=== PATIENT | male | born 1990 | race Caucasian/White ===

== ENCOUNTER 2017-08-03 22:45 | Emergency (ER) | payer BC ==
--- NOTE | 2017-08-03 22:54 | EDPHY ---
H & P Time Seen by Provider: 08/03/17 22:55 HPI/ROS: HPI CHIEF COMPLAINT: Numbness and tingling all over, concerned that he may have diabetes. HISTORY OF PRESENT ILLNESS: Patient very pleasant 27-year-old male, is otherwise healthy with no significant medical history does not take any daily medications he presents emergency room stating that he has had a very long day with very little sleep, at work today he noticed some tingling in his left index finger. He then states that tonight he had numbness and tingling throughout his entire body felt anxious and decided come the emergency room for this. He is concerned he may have diabetes. Past Medical History: No significant medical history Past Surgical History: No significant surgical history Social History: Lives locally denies drugs alcohol tobacco. Employed. Family History: Noncontributory ROS REVIEW OF SYSTEMS: A comprehensive 10 point review of systems is otherwise negative aside from elements mentioned in the history of present illness. Exam Constitutional appears well nontoxic slightly anxious triage nursing summary reviewed, vital signs reviewed, awake/alert. Eyes normal conjunctivae and sclera, EOMI, PERRLA. HENT normal inspection, atraumatic, moist mucus membranes, no epistaxis, neck supple/ no meningismus, no raccoon eyes. Respiratory clear to auscultation bilaterally, normal breath sounds, no respiratory distress, no wheezing. Cardiovascular rate normal, regular rhythm, no murmur, no edema, distal pulses normal. Gastrointestinal soft, non-tender, no rebound, no guarding, normal bowel sounds, no distension, no pulsatile mass. Genitourinary no CVA tenderness. Musculoskeletal no midline vertebral tenderness, full range of motion, no calf swelling, no tenderness of extremities, no meningismus, good pulses, neurovascularly intact. Skin pink, warm, & dry, no rash, skin atraumatic. Neurologic awake, alert and oriented x 3, AAOx3, moves all 4 extremities equally, motor intact, sensory intact, CN II-XII intact, normal cerebellar, normal vision, normal speech. Psychiatric normal mood/affect. Heme/Lymph/Immune no lymphadenopathy. Differential Diagnosis: Includes but is not limited to in a particular order acute anxiety, panic attack, electrolyte disturbance, diabetes, thyroid dysfunction Medical Decision Making: Plan for this patient check basic blood work and electrolytes, check TSH, check glucose. Re-evaluate. Re-evaluation: 2314: Since arriving to the emergency room he states he feels much better. Has not any longer anxious. 2346: Went over patient's blood work with him. Blood work is reassuring. No evidence of diabetes and electrolytes are appropriate. He is resting comfortably without any symptoms. I will allow her to go home most most likely has anxiety, however I did discuss VS versus paresthesias should follow up with his primary care doctor or neurologist. If he has acute change in symptoms to return emergency room if her stands. I do not feel like he needs any imaging at this time is he has no symptoms and is resting comfortably. Return precautions discussed. Source: Patient - Medical/Surgical History Hx Asthma: No Hx Chronic Respiratory Disease: No Hx Diabetes: No Hx Cardiac Disease: No Hx Renal Disease: No Hx Cirrhosis: No Hx Alcoholism: No Hx HIV/AIDS: No Hx Splenectomy or Spleen Trauma: No Other PMH: PMHx: denies. PSHx: denies - Social History Smoking Status: Never smoked Constitutional: Initial Vital Signs Temperature (C) 36.8 C 08/03/17 22:53 Heart Rate 75 08/03/17 22:53 Respiratory Rate 16 08/03/17 22:53 Blood Pressure 137/66 H 08/03/17 22:53 O2 Sat (%) 98 08/03/17 22:53 O2 Delivery Mode Room Air Allergies/Adverse Reactions: No Known Allergies Allergy (Verified 08/03/17 22:55) Home Medications: Medication Instructions Recorded NK [No Known Home Meds] 12/04/15 Medical Decision Making - Data Points Laboratory Results: Laboratory Results 08/03/17 23:15 08/03/17 23:15 08/03/17 08/03/17 23:15 23:15 WBC 6.37 10^3/uL 10^3/uL (3.80-9.50) RBC 4.36 10^6/uL L 10^6/uL (4.40-6.38) Hgb 13.8 g/dL g/dL (13.7-17.5) Hct 40.8 % % (40.0-51.0) MCV 93.6 fL fL (81.5-99.8) MCH 31.7 pg pg (27.9-34.1) MCHC 33.8 g/dL g/dL (32.4-36.7) RDW 11.7 % % (11.5-15.2) Plt Count 271 10^3/uL 10^3/uL (150-400) MPV 9.2 fL fL (8.7-11.7) Neut % (Auto) 53.7 % % (39.3-74.2) Lymph % (Auto) 35.8 % % (15.0-45.0) Dade % (Auto) 9.1 % % (4.5-13.0) Eos % (Auto) 0.9 % % (0.6-7.6) Baso % (Auto) 0.2 % L % (0.3-1.7) Nucleat RBC Rel Count 0.0 % % (0.0-0.2) Absolute Neuts (auto) 3.42 10^3/uL 10^3/uL (1.70-6.50) Absolute Lymphs (auto) 2.28 10^3/uL 10^3/uL (1.00-3.00) Absolute Monos (auto) 0.58 10^3/uL 10^3/uL (0.30-0.80) Absolute Eos (auto) 0.06 10^3/uL 10^3/uL (0.03-0.40) Absolute Basos (auto) 0.01 10^3/uL L 10^3/uL (0.02-0.10) Absolute Nucleated RBC 0.00 10^3/uL 10^3/uL (0-0.01) Immature Gran % 0.3 % % (0.0-1.1) Immature Gran # 0.02 10^3/uL 10^3/uL (0.00-0.10) Sodium 139 mEq/L mEq/L (135-145) Potassium 4.3 mEq/L mEq/L (3.5-5.2) Chloride 102 mEq/L mEq/L (97-110) Carbon Dioxide 27 mEq/l mEq/l (22-31) Anion Gap 10 mEq/L mEq/L (8-16) BUN 20 mg/dL mg/dL (7-23) Creatinine 1.1 mg/dL mg/dL (0.7-1.3) Estimated GFR > 60 Glucose 100 mg/dL mg/dL (70-100) Calcium 10.0 mg/dL mg/dL (8.5-10.4) Magnesium 2.2 mg/dL mg/dL (1.6-2.3) TSH Pending Departure - Departure Disposition: Home, Routine, Self-Care Clinical Impression: Anxiety, Tingling Condition: Good Instructions: Paresthesia (ED) Additional Instructions: 1. Return emergency room if you have worsening symptoms questions or concerns. Referrals: NONE *PRIMARY CARE P,. [Primary Care Provider] - As per Instructions
[2017-08-03 23:08] VITALS: PULSE 75
[2017-08-03 23:25] LABS: PLATELET COUNT 271 10^3/uL (150-400)
[2017-08-03 23:50] VITALS: BP 121/86; RESP 18; TEMP 98.4; O2SAT 96
== END 2017-08-03 23:56 | disposition home or self-care (01) ==
DX: F41.9 Anxiety disorder, unspecified (principal); R20.2 Paresthesia of skin